=== PATIENT | male | born 1955 | race Caucasian/White ===

== ENCOUNTER 2020-04-19 12:24 | Emergency (ER) | payer SELFPAY ==
[2020-04-19 12:25] VITALS: BMI 22.9
[2020-04-19 12:30] VITALS: BP 75/50; PULSE 78; RESP 18; O2SAT 94
[2020-04-19] MEDS: vecuronium 10 mg SDV IVP (12:31)
--- NOTE | 2020-04-19 12:33 | XR_ITS ---
WS: [id number] Portable AP upright chest, 04/19/2020 Clinical Data: post intubation Comparison: PA and lateral chest, 10/31/2014. Findings: No nodules, masses or effusions are seen. The heart is normal. The pulmonary vascularity is not increased. No pneumonia or pneumothorax is seen. The endotracheal tube is above the you. Ther e is a nasogastric tube which appears to end within the stomach. Monitor leads are on the chest wall. XR/XR chest 1V portable [id number] Impression: 1. Satisfactory placement of endotracheal tube ending above the you. 2. Nasogastric tube appears and within the stomach.
--- NOTE | 2020-04-19 12:34 | ECG_ITS ---
[facility] Test Date: 2020-04-19 Pat Name: Arnaldo Galeana Department: Room: Gender: Male [employer]: : 1955 Requested By: Shahana Nagy Order Number: [id number] Suleiman MD: Madhuri Olson M.D. Measurements Intervals [place] Rate: 57 P: 78 WV: 158 QRS: 21 QRSD: 122 T: -73 QT: 413 QTc: 403 Interpretive Statements SINUS BRADYCARDIA WITH SINUS ARRHYTHMIA ANTEROSEPTAL MYOCARDIAL INFARCTION , OF INDETERMINATE AGE [40+ ms Q WAVE IN V1-V4] MODERATE T-WAVE ABNORMALITY, CONSIDER INFERIOR ISCHEMIA [-0.1+ mV T WAVE IN II/aVF] No previous ECG available for comparison Electronically Signed On 04-19-2020 20:16:51 CDT by Madhuri Olson M.D. [id number]
--- NOTE | 2020-04-19 12:36 | ED_ITS ---
HPI - General Adult General: Chief complaint: General Medical Stated complaint: POST CODE Time Seen by Provider: 04/19/20 12:33 Source: EMS Mode of arrival: EMS Limitations: no limitations and altered mental status History of Present Illness: HPI narrative: 64-year-old male who presents here from [facility] after post arrest. Patient was working at [employer] and was found down in the bathroom. CPR was started. EMS states when they arrived patient was pulseless and they gave him epinephrine and he had received return of spontaneous circulation. They have an eye gel down and gave him 100 mg of ketamine just before arrival as he was fighting with the eye gel airway. No known recent fevers or illnesses. Review of Systems General: Reports: ROS unobtainable due to medical condition PFSH ED PFSH: Medical History Essential hypertension Social History Smoking and tobacco status: current every day smoker cigarettes Packs smoked per day: 0.5 Alcohol intake: never Lives independently: Yes Household members: spouse Housing: House Marital status: History of recent travel: No Procedures Central Line Placement Right IJ: Time Out Performed: Yes Patient Placed on Monitor/Pulse Ox: Yes MD Prep: gown and gloves Central Line Prep: Chlorhexidine scrub Ultrasound Used for Placement: Yes Central Line Lumen Inserted: triple Post Procedure: sutured in place, good blood return, all ports aspirated, flushed, capped and sterile dressing applied Patient Tolerated Procedure: well Complications: none Intubation sedative: Etomidate Mg Given: 20 paralytic: Vecuronium Mg Given: 10 Laryngoscope: Hermila ET Tube Size: 7.5 ET Tube Uncuffed: No Tube Secured Depth (cm): 25 Tube Secured Location: lips Tube Placement Confirmation: visualized tube passing through cords, equal breath sounds bilaterally, no breath sounds over epigastrium and confirmation by capnometry Patient Tolerated Procedure: well Intubation Complications: none Course Vital Signs: Vital signs: Vital Signs Pulse Rate 78 04/19/20 12:30 Respiratory Rate 14 04/19/20 12:49 Blood Pressure 75/50 04/19/20 12:30 Pulse Oximetry 100 04/19/20 12:54 MDM - General Adult MDM Narrative: Medical decision making narrative: Patient presents here after a cardiac arrest where they were able to get spontaneous return of circulation. Patient was having low blood pressures here and was started on levo fed and had a central line started as well. Patient was intubated here. Patient then became bradycardic and coded again. After multiple rounds of epinephrine patient also given calcium patient never had return of circulation. Time of was called at 1353. Lab Data: Labs: Lab Results 04/19/20 04/19/20 04/19/20 Range/Units 11:27 11:27 11:27 WBC 14.6 H (4.0-10.0) 10^3/ uL RBC 4.82 (4.1-5.3) 10^6/u L Hgb 15.6 (11.7-16.6) g/dL Hct 47.4 (42.0-52.0) % MCV 98.3 H (80-94) fL MCH 32.4 (28.0-34.0) pg MCHC 32.9 (30.0-36.0) g/dL RDW 12.3 (12.1-15.1) % Plt Count 239 (130-400) 10^3/c mm MPV 9.1 (7.4-10.4) fL Neut % (Auto) 55.6 % Lymph % (Auto) 30.9 % [place] % (Auto) 6.4 % Eos % (Auto) 1.5 % Baso % (Auto) 0.7 % Neut # (Auto) 8.15 H (1.8-7.7) 10^3/u L Lymph # (Auto) 4.5 (0.8-4.8) 10^3/u L [place] # (Auto) 0.9 (0.2-0.9) 10^3/u L Eos # (Auto) 0.2 (0.0-0.8) 10^3/u L Baso # (Auto) 0.1 (0.0-0.1) 10^3/u L Nucleated RBC % (a uto) 0 % Nucleated RBCs # 0.0 /100WBC PT 14.50 (12.1-14.9) SECO NDS INR 1.09 (0.8-1.2) Specimen Type Sample Site ABG pH (7.35-7.45) ABG pCO2 (35-45) mmHg ABG pO2 (80.0-100.0) mmH g ABG HCO3 (22-26) mmol/L ABG Base Excess (-2.0-2.0) mmol/ L Anthony Test Hematocrit (42-52) % O2 Delivery Device FiO2 % Tidal Volume PEEP cmH20 Chemical Laboratory Scientist ID Sodium 130 L (136-145) mmol/L Potassium 6.9 H* (3.5-5.1) mmol/L Chloride 97 L (98-107) mmol/L Carbon Dioxide 18 L (22-29) mmol/L Anion Gap 21.9 H (5-19) BUN 27 H (8-23) mg/dL Creatinine 1.5 H (0.7-1.2) mg/dL GFR Calculation 47.3 L (90-130) mL/min Glucose 278 H (65-115) mg/dL Calculated Osmolal ity 277 L (285-295) mOsm/k g Lactate (0.5-2.2) mmol/L Calcium 7.8 L (8.5-10.5) mg/dL Total Bilirubin 0.5 (0.15-1.2) mg/dL AST 63 H (0-40) U/L ALT 59 H (0-41) U/L Alkaline Phosphata se 55 (40-130) IU/L Troponin T Baselin e (0-15) ng/L Total Protein 6.6 (6.6-8.7) g/dL Albumin 3.8 (3.5-5.2) g/dL Globulin 2.8 (1.3-4.6) g/dL 04/19/20 04/19/20 04/19/20 Range/Units 11:27 11:27 13:05 WBC (4.0-10.0) 10^3/ uL RBC (4.1-5.3) 10^6/u L Hgb (11.7-16.6) g/dL Hct (42.0-52.0) % MCV (80-94) fL MCH (28.0-34.0) pg MCHC (30.0-36.0) g/dL RDW (12.1-15.1) % Plt Count (130-400) 10^3/c mm MPV (7.4-10.4) fL Neut % (Auto) % Lymph % (Auto) % [place] % (Auto) % Eos % (Auto) % Baso % (Auto) % Neut # (Auto) (1.8-7.7) 10^3/u L Lymph # (Auto) (0.8-4.8) 10^3/u L [place] # (Auto) (0.2-0.9) 10^3/u L Eos # (Auto) (0.0-0.8) 10^3/u L Baso # (Auto) (0.0-0.1) 10^3/u L Nucleated RBC % (a uto) % Nucleated RBCs # /100WBC PT (12.1-14.9) SECO NDS INR (0.8-1.2) Specimen Type Arterial Sample Site Radial, right ABG pH 7.24 L (7.35-7.45) ABG pCO2 40.1 (35-45) mmHg ABG pO2 335.0 H (80.0-100.0) mmH g ABG HCO3 17.0 L (22-26) mmol/L ABG Base Excess -9.9 L (-2.0-2.0) mmol/ L Anhtony Test Pos Hematocrit 46.3 (42-52) % O2 Delivery Device Vent FiO2 100.0 % Tidal Volume 0.50 PEEP 8.0 cmH20 Chemical Laboratory Scientist ID glc Sodium (136-145) mmol/L Potassium (3.5-5.1) mmol/L Chloride (98-107) mmol/L Carbon Dioxide (22-29) mmol/L Anion Gap (5-19) BUN (8-23) mg/dL Creatinine (0.7-1.2) mg/dL GFR Calculation (90-130) mL/min Glucose (65-115) mg/dL Calculated Osmolal ity (285-295) mOsm/k g Lactate 5.6 H* (0.5-2.2) mmol/L Calcium (8.5-10.5) mg/dL Total Bilirubin (0.15-1.2) mg/dL AST (0-40) U/L ALT (0-41) U/L Alkaline Phosphata se (40-130) IU/L Troponin T Baselin e 19 H (0-15) ng/L Total Protein (6.6-8.7) g/dL Albumin (3.5-5.2) g/dL Globulin (1.3-4.6) g/dL EKG Data^: EKG 1: Attestation: I personally reviewed and interpreted this EKG as follows: EKG interpretation date: 04/19/20 EKG interpretation time: 12:34 Interpretation: nsr hr [address] o t wave abnormality qrs 114 qtc 409 Computer generated interpretation: Chest X-Ray 04/19/20 12:33 Impression: 1. Satisfactory placement of endotracheal tube ending above the you. 2. Nasogastric tube appears and within the stomach. Critical Care Time Critical Care Time: Critical Care Time: Yes Total Critical Care Time: 35 Attestation: This case had a high probability of a clinically significant, sudden, or life threatening deterioration of this patient's condition which required my full and direct attention, intervention and personal management. Discharge Plan Discharge Patient Disposition: Clinical Impression: Cardiac arrest Condition: Stable Referrals: Yahaira Iyer FNP-C [Primary Care Provider] - Coding Level of Care Code ED Toeing Stockings for Fer Hylton
[2020-04-19] MEDS: sodium chloride 0.9% 1,000 ML 999 ML IV (12:44)
[2020-04-19 12:45] LABS: Basophils # 0.1 10^3/uL (0.0-0.1); Basophils % 0.7 %; Eosinophils # 0.2 10^3/uL (0.0-0.8); Eosinophils % 1.5 %; Hematocrit 47.4 % (42.0-52.0); Hemoglobin 15.6 g/dL (11.7-16.6); Lymphocytes # 4.5 10^3/uL (0.8-4.8); Lymphocytes % 30.9 %; Mean Corpuscular HGB Conc 32.9 g/dL (30.0-36.0); Mean Corpuscular Hemoglobin 32.4 pg (28.0-34.0); Mean Corpuscular Volume 98.3 fL (80-94); Mean Platelet Volume 9.1 fL (7.4-10.4); Monocytes # 0.9 10^3/uL (0.2-0.9); Monocytes % 6.4 %; Neutrophils # 8.15 10^3/uL (1.8-7.7); Neutrophils % 55.6 %; Nucleated Red Blood Cells % 0 %; Platelet Count 239 10^3/cmm (130-400); Red Blood Count 4.82 10^6/uL (4.1-5.3); Red Cell Distribution Width 12.3 % (12.1-15.1); White Blood Count 14.6 10^3/uL (4.0-10.0)
[2020-04-19 12:49] VITALS: RESP 14
[2020-04-19 12:54] VITALS: O2SAT 100
--- NOTE | 2020-04-19 12:56 | PC.NURSE ---
20mg of Etomidate, and 10mg of Vec administered at 1231p. Patient was intubated at 1233 with an 7.5 ETT measuring 25 at the lips.
[2020-04-19 13:01] LABS: INR 1.09 (0.8-1.2)
[2020-04-19 13:03] LABS: Alanine Aminotransferase 59 U/L (0-41); Albumin Level 3.8 g/dL (3.5-5.2); Alkaline Phosphatase 55 IU/L (40-130); Blood Urea Nitrogen 27 mg/dL (8-23); Calcium 7.8 mg/dL (8.5-10.5); Carbon Dioxide 18 mmol/L (22-29); Chloride 97 mmol/L (98-107); Globulin 2.8 g/dL (1.3-4.6); Glomerular Filtration Rate 47.3 mL/min (90-130); Glucose 278 mg/dL (65-115); Osmolality Calculated 277 mOsm/kg (285-295); Sodium 130 mmol/L (136-145); Total Bilirubin 0.5 mg/dL (0.15-1.2); Total Protein 6.6 g/dL (6.6-8.7)
[2020-04-19 13:04] LABS: Lactate (Lactic Acid level) 5.6 mmol/L (0.5-2.2)
[2020-04-19 13:06] LABS: Troponin(5th) Baseline 19 ng/L (0-15)
[2020-04-19 13:07] LABS: Anion Gap 21.9 (5-19); Aspartate Amino Transferase 63 U/L (0-40)
[2020-04-19 13:08] LABS: Potassium 6.9 mmol/L (3.5-5.1)
[2020-04-19 13:14] LABS: ABG PCO2 40.1 mmHg (35-45); ABG PH Result 7.24 (7.35-7.45); Arterial Blood Gas Hematocrit 46.3 % (42-52); Base Excess ABG -9.9 mmol/L (-2.0-2.0); Blood Gas Allen Test Pos; Blood Gas Operator Identificat glc; Blood Gas Sample Site Radial, right; Blood Gas Sample Type Arterial; Oxygen Device VENT
[2020-04-19] MEDS: EPINEPHrine 0.1 mg/mL SYR 10 mL 1 MG IV ×6 (13:40→13:51)
[2020-04-19] MEDS: calcium chloride 10% Syr 10 mL 1 GM IVP ×2 (13:43→13:48)
--- NOTE | 2020-04-19 14:34 | ECG_ITS ---
[facility] Test Date: 2020-04-19 Pat Name: Arnaldo Galeana Department: Room: Gender: Male [employer]: : 1955 Requested By: Shahana Nagy Order Number: [id number] Suleiman MD: Madhuri Olson M.D. Measurements Intervals [place] Rate: 86 P: 79 [place]: 151 QRS: -1 QRSD: 114 T: 91 QT: 366 QTc: 439 Interpretive Statements SINUS RHYTHM WITH OCCASIONAL VENTRICULAR PREMATURE COMPLEXES POSSIBLE ANTERIOR MYOCARDIAL INFARCTION , OF INDETERMINATE AGE [30 ms Q WAVE IN V3/V4, OR R < 0.2 mV IN V4] No previous ECG available for comparison Electronically Signed On 04-19-2020 20:42:53 CDT by Madhuri Olson M.D. [id number]
[2020-04-19 14:40] VITALS: BP 0/0; PULSE 0; RESP 0; TEMP -17.7; TEMP 0; O2SAT 0
== END 2020-04-19 16:08 | disposition expired ==
PROVIDERS: Emergency Provider Emergency Medicine; PCP Nurse Practitioner Family
DX: I46.9 Cardiac arrest, cause unspecified (principal); I10 Essential (primary) hypertension; F17.210 Nicotine dependence, cigarettes, uncomplicated
CPT/HCPCS: 12345; 31500; 36556; 36600; 51702; 71045; 80053; 82803; 83605; 84484; 85025; 85610; 87040; 93005; 94002; 96360; 96361; 96365; 96366; 96367; 96368; 96375; 99284; 99291; J0171; J3490; J7030